=== PATIENT | female | born 1980 | race Native Hawaiian/Other Pacific Islander ===

== ENCOUNTER 2017-04-08 14:34 | Emergency (ER) | payer MEDICAID ==
[2017-04-08 14:35] VITALS: BMI 25.7
[2017-04-08 14:45] VITALS: BP 142/88; PULSE 64; RESP 18; TEMP 97; O2SAT 100
--- NOTE | 2017-04-08 16:13 | ED PDOC ---
HPI: Female Pain Time Seen by Provider: 04/08/17 15:54 Chief Complaint (Nursing): Abdominal Pain Chief Complaint (Provider): pelvic pain History Per: Patient History/Exam Limitations: no limitations Onset/Duration Of Symptoms: Hrs Current Symptoms Are (Timing): Still Present Severity: Moderate Quality Of Discomfort: "Pain" Associated Symptoms: Back Pain Additional Complaint(s): 36 y/o F with Hx of HTN, Uterine fibroids and ovarian torsion presents to ED with complains of R/side pelvic pain since this morning. Pain sometimes radiates to the lower back and improves while she is sitting. Denies vomiting, nausea, diarrhea, constipation, urinary symptoms. States she has been feeling "call" but hasnt checked her temp. Admits hX of heavy periods and is having a spotting VB at this time. Denies vaginal discharge. Abnormal Vaginal Bleeding: Yes Last Menstral Period: Currently spotting Past Medical History Vital Signs: Last Vital Signs Temp 97 F L 04/08/17 14:42 Pulse 64 04/08/17 14:42 Resp 18 04/08/17 14:42 BP 142/88 04/08/17 14:42 Pulse Ox 100 04/08/17 14:42 - Medical History PMH: Back Problems, HTN Denies: Chronic Kidney Disease - Surgical History Other surgeries: Ovarian torsion - Family History Family History: States: Unknown Family Hx - Social History Current smoker - smoking cessation education provided: Yes Alcohol: None Drugs: Cannabis - Immunization History Hx Tetanus Toxoid Vaccination: No Hx Influenza Vaccination: Yes Hx Pneumococcal Vaccination: No - Home Medications Home Medications: Ambulatory Orders Medication Instructions Recorded amLODIPine [Norvasc] 10 mg PO DAILY #30 tab 02/11/14 Ferrous Sulfate [Feosol] 325 mg PO .3X WEEK 04/11/16 Guaifenesin/Pseudoephedrne HCl 1 tab PO DAILY PRN #30 ter 05/04/16 [Mucinex D 600 mg-60 mg] Methylprednisolone [Medrol Dose 4 mg PO DAILY #21 mg 05/04/16 Pack (21 tabs)] Promethazine HCl/Codeine 5 ml PO HS #80 ml 05/04/16 [Prometh-Codein 6.25-10 mg/5 ml] Ibuprofen [Motrin] 600 mg PO Q6H PRN #20 tab 04/08/17 - Allergies Allergies/Adverse Reactions: Allergies Allergy/AdvReac Type Severity Reaction Status Date / Time No Known Allergies Allergy Verified 05/04/16 12:08 Review of Systems ROS Statement: Except As Marked, All Systems Reviewed And Found Negative Genitourinary Female: Positive for: Vaginal Bleeding, Pelvic Pain Physical Exam - Physical Exam Appears: Positive for: Non-toxic, Uncomfortable Skin: Positive for: Normal Color, Warm Eye Exam: Positive for: Normal appearance, EOMI, PERRL Cardiovascular/Chest: Positive for: Regular Rate, Rhythm. Negative for: Gallop Respiratory: Positive for: Normal Breath Sounds. Negative for: Crackles, Rales , Wheezing Gastrointestinal/Abdominal: Positive for: Soft, Tenderness (B/L pelvic area. ). Negative for: Mass, Distended, Guarding, Rebound Back: Positive for: L CVA Tenderness. Negative for: R CVA Tenderness Extremity: Positive for: Normal ROM. Negative for: Tenderness, Pedal Edema, Swelling Neurologic/Psych: Positive for: Alert, Oriented. Negative for: Motor/Sensory Deficits - ECG O2 Sat by Pulse Oximetry: 100 - Progress ED Course And Treament: Pain improved after 2mg of morphine IV TV and Pelvis US : No ovarian torsion, L/ovarian cyst. Uterus heterogeneous, Fibroids x2, endometrium 9 mmm. Urinedip unremarkable. Medical Decision Making Medical Decision Making: Pelvic pain R/O Ovarian pathology vs Fibroids vs UTI F/U TV/pelvis US and UA Morphine 2 mg IV once Disposition - Clinical Impression Clinical Impression: Uterine fibroid, Ovarian cyst - Patient ED Disposition Is Patient to be Admitted: No Counseled Patient/Family Regarding: Diagnosis, Need For Followup - Disposition Referrals: Donta Simmons MD [Staff Provider] - Disposition: Routine/Home Disposition Time: 18:38 Condition: STABLE Additional Instructions: F/U with your [facility] specialist within 1 week Prescriptions: Ibuprofen [Motrin] 600 mg PO Q6H PRN #20 tab PRN Reason: Pain, Moderate (4-7) Instructions: Uterine Fibroids (ED), Ovarian Cyst (ED), Pelvic Pain in Women ( ED) Forms: [email or web address] (Surinamese) Print Language: PORTUGUESE
--- NOTE | 2017-04-08 18:29 | US ---
HISTORY: RLQ pain, h/o ovarian torsion COMPARISON: Transvaginal pelvic ultrasound performed 02/07/16 TECHNIQUE: Pelvis/transvaginal ultrasound FINDINGS: UTERUS: Measures 7.4 x 7.3 x 7.8 cm. Heterogeneous uterine echotexture. At least 2 probable uterine fibroids identified measuring approximately 1.6 x 1.6 x 1.5 cm (fundal) and 3.8 x 2.9 x 3.1 cm (fundal). ENDOMETRIUM: Measures 9 mm in diameter. CERVIX: No cervical abnormality identified. RIGHT OVARY: Measures 3.8 x 2.7 x 2.2 cm. Blood flow is demonstrated. LEFT OVARY: Measures 2.9 x 1.5 x 1.5 cm. Blood flow is demonstrated. 1.0 x 0.9 x 1.1 cm follicle/cyst. FREE FLUID: No significant free fluid noted. OTHER FINDINGS: None. IMPRESSION: Heterogeneous uterine echotexture. At least 2 probable uterine fibroids identified measuring approximately 1.6 x 1.6 x 1.5 cm (fundal) and 3.8 x 2.9 x 3.1 cm (fundal). 1.0 x 0.9 x 1.1 cm left ovarian follicle/cyst.
== END 2017-04-08 19:45 | disposition home or self-care (01) ==
LOC: H.ER 14:34
DX: D25.9 Leiomyoma of uterus, unspecified (principal); N83.202 Unspecified ovarian cyst, left side; I10 Essential (primary) hypertension; F17.200 Nicotine dependence, unspecified, uncomplicated
CPT/HCPCS: 76830; 76856; 81025; 96374; 99283; J2270

== ENCOUNTER 2017-08-17 17:17 | Emergency (ER) | payer MEDICAID ==
[2017-08-17 17:17] VITALS: BMI 25.7
[2017-08-17 17:33] VITALS: BP 139/99; PULSE 80; RESP 16; TEMP 98.2; O2SAT 100
--- NOTE | 2017-08-17 17:38 | ED PDOC ---
Lower Extremity Pain/Injury Time Seen by Provider: 08/17/17 17:38 Chief Complaint (Nursing): Lower Extremity Problem/Injury Chief Complaint (Provider): toe pain History Per: Patient Additional Complaint(s): 36-year-old female presents with pain to right fifth toe status post hitting it against a weight earlier today. Patient unable to bend affected toe without severe pain. No medication taken for pain prior to arrival. Patient denies numbness or tingling to the affected area. Past Medical History Reviewed: Historical Data, Nursing Documentation, Vital Signs Vital Signs: Last Vital Signs Temp 98.2 F 08/17/17 17:29 Pulse 80 08/17/17 17:29 Resp 16 08/17/17 17:29 BP 139/99 H 08/17/17 17:29 Pulse Ox 100 08/17/17 17:29 - Medical History PMH: Back Problems, HTN - Surgical History Other surgeries: ovarian cyst removal - Family History Family History: States: No Known Family Hx - Living Arrangements Living Arrangements: With Family - Social History Current smoker - smoking cessation education provided: No Alcohol: None Drugs: Denies - Immunization History Hx Tetanus Toxoid Vaccination: No - Home Medications Home Medications: Ambulatory Orders Medication Instructions Recorded amLODIPine [Norvasc] 10 mg PO DAILY #30 tab 02/11/14 Ferrous Sulfate [Feosol] 325 mg PO .3X WEEK 04/11/16 Guaifenesin/Pseudoephedrne HCl 1 tab PO DAILY PRN #30 ter 05/04/16 [Mucinex D 600 mg-60 mg] Methylprednisolone [Medrol Dose 4 mg PO DAILY #21 mg 05/04/16 Pack (21 tabs)] Promethazine HCl/Codeine 5 ml PO HS #80 ml 05/04/16 [Prometh-Codein 6.25-10 mg/5 ml] Ibuprofen [Motrin] 600 mg PO Q6H PRN #20 tab 04/08/17 Ibuprofen [Motrin Tab] 800 mg PO Q8 PRN #20 tab 08/17/17 - Allergies Allergies/Adverse Reactions: Allergies Allergy/AdvReac Type Severity Reaction Status Date / Time No Known Allergies Allergy Verified 08/17/17 17:29 Wells Criteria for PE - Wells Criteria for Pulmonary Embolism Clinical Signs and Symptoms of DVT: No P.E is #1 Diagnosis, or Equally Likely: No Heart Rate >100: No Immobilization at least 3 days;Surgery previous 4 weeks: No Previous, objectively diagnosed PE or DVT: No Hemoptysis: No Malignancy w/treatment within 6 months, or palliative: No Total Score: 0 Review of Systems ROS Statement: Except As Marked, All Systems Reviewed And Found Negative Musculoskeletal: Positive for: Foot Pain (right 5th toe injury) Physical Exam - Reviewed Nursing Documentation Reviewed: Yes Vital Signs Reviewed: Yes - Physical Exam Appears: Positive for: Well, Non-toxic, No Acute Distress Skin: Negative for: Rash Eye Exam: Positive for: Normal appearance Extremity: Positive for: Other (Swelling, tenderness and decreased range of motion of right fifth toe, no obvious bony deformity, remaining toes are nontender, normal distal sensation, remainder of foot is non-tender) - Laboratory Results Urine POC: Negative - ECG O2 Sat by Pulse Oximetry: 100 Pulse Ox Interpretation: Normal - Other Rad Right foot x-ray X-Ray: Interpreted by Me, Viewed By Me X-Ray Interpretation: nondisplaced oblique fracture of right 5th toe Medical Decision Making Medical Decision Makin-year-old female with injury to right fifth toe Plan: test X-ray right foot Ibuprofen 600 mg PO Patient aware of x-ray results. All questions answered. Procedure note: Right fourth and fifth toes were sami taped, orthopedic shoe applied to right foot, neurovascular intact status post placement. Patient given prescription for Motrin, refer to podiatry clinic and given RICE instructions. Disposition - Clinical Impression Clinical Impression: Toe fracture - Patient ED Disposition Is Patient to be Admitted: No Counseled Patient/Family Regarding: Studies Performed, Diagnosis, Need For Followup, Rx Given - Disposition Referrals: Podiatry Clinic [Outside] Disposition: Routine/Home Disposition Time: 18:37 Condition: STABLE Additional Instructions: Ice, rest and elevate affected area. Take rx meds as directed as needed for pain. Follow up with podiatry clinic in 2-3 days. Prescriptions: Ibuprofen [Motrin Tab] 800 mg PO Q8 PRN #20 tab PRN Reason: Pain, Moderate (4-7) Instructions: Toe Fracture (DC) Forms: [employer] (Romanian), [facility] ED School/Work Excuse
--- NOTE | 2017-08-18 11:42 | RAD ---
PROCEDURE: Right Foot Radiographs. HISTORY: trauma, attn 5th toe COMPARISON: None. FINDINGS: BONES: Fracture of the 5th proximal phalanx. JOINTS: Normal. SOFT TISSUES: Normal. OTHER FINDINGS: None. IMPRESSION: Fracture of the 5th proximal phalanx.
== END 2017-08-17 19:05 | disposition home or self-care (01) ==
LOC: H.ER 17:17
DX: S92.351A Displaced fracture of fifth metatarsal bone, right foot, initial encounter for closed fracture (principal); W22.8XXA Striking against or struck by other objects, initial encounter; Y92.89 Other specified places as the place of occurrence of the external cause; I10 Essential (primary) hypertension